=== PATIENT | female | born 1965 | race Caucasian/White ===

== ENCOUNTER 2016-12-18 21:46 | Emergency (ER) | payer OTHER ==
[~2016-12-18] VITALS: Ht 157.4 cm; Wt 88.9 kg
[~2016-12-18 21:46] MED LIST: 'PARAFON FORTE500 M1 PO; ALBUTEROL0.09 MG/A2 INH; AMOXICILLIN500 M2 PO; AMOXICILLIN500 MG PO; ATARAX25 MG PO; ATIVAN1 MG PO; CLEOCIN150 MG PO; CYCLOBENZAPRINE10 MG PO; EC NAPROSYN,NA500 MG PO; FLEXERIL10 MG PO; HYDROCODONE BIT1 T11 PO; HYDROXYZINE HCL25 M1 PO; KEPPRA1000 MG PO; LIDEX 0.05% CRE15 GM T; LORAZEPAM0.5 MG PO; MEDROL DOSEPAK4 MG PO; MOTRIN600 MG PO; MOTRIN800 MG PO; Motrin,Rufen800 MG PO; NAPROSYN500 MG PO; NORCO 5-325 TA1 EACH PO; PAMELOR25 MG PO; PREDNICOT20 MG PO; PREDNISONE50 MG PO; ROBITUSSIN DM PO; TAGAMET HB200 M1 PO; TESSALON PERLE200 MG PO; TRILEPTAL600 MG PO; ZITHROMAX Z PA250 MG PO; ZITHROMAX Z-PA250 MG PO; ZONEGRAN100 MG PO
[2016-12-18] MEDS ORDERED: Motrin,Rufen800 MG PO (22:46)
[2016-12-18] MEDS ORDERED: PROAIR HFA8.5 GM INH (22:46)
[2016-12-18] MEDS ORDERED: ALBUTEROL SULF0.5 M1 INH (22:46)
[2016-12-18] MEDS ORDERED: CEFDINIR300 MG PO (22:46)
== END 2016-12-18 22:59 | disposition home or self-care (01) ==
LOC: ED 21:46
DX: J40 Bronchitis, not specified as acute or chronic (principal); H66.92 Otitis media, unspecified, left ear; F17.210 Nicotine dependence, cigarettes, uncomplicated; F41.9 Anxiety disorder, unspecified; Z88.1 Allergy status to other antibiotic agents; Z88.2 Allergy status to sulfonamides; Z88.8 Allergy status to other drugs, medicaments and biological substances

== ENCOUNTER 2017-01-31 19:18 | Emergency (ER) | payer OTHER ==
[~2017-01-31] VITALS: Ht 157.4 cm; Wt 81.6 kg
[~2017-01-31 19:18] MED LIST changes: +ALBUTEROL SULF0.5 M1 INH; +CEFDINIR300 MG PO; +PROAIR HFA8.5 GM INH
[2017-01-31] MEDS ORDERED: LIDEX 0.05% CRE15 GM T (20:03)
[2017-01-31] MEDS ORDERED: VISTARIL25 M2 PO (20:03)
== END 2017-01-31 20:22 | disposition home or self-care (01) ==
LOC: ED 19:18
DX: R21 Rash and other nonspecific skin eruption (principal); F17.200 Nicotine dependence, unspecified, uncomplicated; Z88.1 Allergy status to other antibiotic agents; Z88.2 Allergy status to sulfonamides; Z88.8 Allergy status to other drugs, medicaments and biological substances; Z79.899 Other long term (current) drug therapy

== ENCOUNTER 2017-10-13 18:33 | Emergency (ER) | payer OTHER ==
[~2017-10-13] VITALS: Wt 90.7 kg
[~2017-10-13 18:33] MED LIST changes: +VISTARIL25 M2 PO
== END 2017-10-13 20:32 | disposition home or self-care (01) ==
LOC: ED 18:33
DX: M54.6 Pain in thoracic spine (principal); F17.200 Nicotine dependence, unspecified, uncomplicated; E66.9 Obesity, unspecified; E78.00 Pure hypercholesterolemia, unspecified; F41.9 Anxiety disorder, unspecified; Z88.2 Allergy status to sulfonamides; Z68.35 Body mass index [BMI] 35.0-35.9, adult; Z88.1 Allergy status to other antibiotic agents

== ENCOUNTER 2017-10-23 15:02 | Emergency (ER) | payer OTHER ==
[~2017-10-23] VITALS: Ht 157.4 cm; Wt 86.2 kg
[2017-10-23 15:47] LABS: BILIRUBIN NEGATIVE (NEGATIVE); BLOOD NEGATIVE (NEGATIVE); CLARITY SL CLOUDY (CLEAR); COLOR YELLOW (YELLOW); GLUCOSE NEGATIVE (NEGATIVE); KETONE NEGATIVE (NEGATIVE); LEUKO ESTERASE 1+ (NEGATIVE); NITRITE NEGATIVE (NEGATIVE); SPECIFIC GRAVITY 1.015 (1.005-1.030); UROBILINOGEN 0.2 E.U./dl (0.2-1.0)
[2017-10-23 15:55] LABS: BACTERIA 2+
[2017-10-23 16:00] LABS: URINE AMPHETAMINES < 1000 (1000ng/ml); URINE BARBITURATES < 200 (200ng/ml); URINE BENZODIAZEPINES < 200 (200ng/ml); URINE CANNABINOIDS (THC) < 50 (50ng/ml); URINE COCAINE < 300 (300ng/ml); URINE METHADONE < 300 (300ng/ml); URINE OPIATES < 300 (300ng/ml); URINE PHENCYCLIDINE < 25 (25ng/ml)
[2017-10-23 16:11] LABS: BASO % 0.7 % (0.0-1.0); EOS # 0.1 10*3/uL (0.0-0.4); EOS % 1.9 % (1.0-4.0); HEMATOCRIT 40.4 % (37.0-47.0); LYMPH # 2.9 10*3/uL (1.3-4.4); MEAN CELL VOLUME 90.4 fl (81.0-99.0); MEAN CORPUSCULAR HGB 31.3 pg (27.0-31.0); MEAN CORPUSCULAR HGB CONC 34.7 g/dl (33.0-37.0); MONO # 0.5 10*3/uL (0.1-1.0); MONO % 8.8 % (3.0-9.0); NEUT # 2.4 10*3/uL (2.3-7.9); NEUT % 40.3 % (47.0-73.0); PLATELET COUNT AUTOMATED 271 10*3/uL (130-400); RED BLOOD COUNT 4.47 10*6/uL (4.10-5.10); RED CELL DISTRI WIDTH 12.6 % (0-14.5); WHITE BLOOD COUNT 5.9 10*3/uL (4.8-10.8)
[2017-10-23 16:19] LABS: ACT PARTIAL THROMBO TIME 23.5 SECONDS (20.8-31.5); INTERNATIONAL NORM RATIO 0.9 (2.0-3.5)
[2017-10-23 16:26] LABS: ALBUMIN 3.7 gm/dl (3.1-4.5); ALKALINE PHOSPHATASE 201 U/L (45-117); BUN 8 mg/dl (7-24); CHLORIDE 106 mmol/L (98-107); CREATININE 0.69 mg/dL (0.55-1.02); LIPASE 91 U/L (73-393); POTASSIUM 3.9 mmol/L (3.5-5.1); SGOT/AST 14 IU/L (3-35); SGPT/ALT 26 U/L (12-78); SODIUM 138 mmol/L (136-145); TOTAL PROTEIN 7.5 gm/dL (6.4-8.2)
[2017-10-23 16:28] LABS: TROPONIN I < 0.015 ng/ml (<0.045)
[2017-10-23] MEDS ORDERED: MACROBID100 M1 PO (16:49)
== END 2017-10-23 16:51 | disposition home or self-care (01) ==
LOC: ED 15:02
PROVIDERS: Nurse Practitioner Family
DX: N39.0 Urinary tract infection, site not specified (principal); E78.00 Pure hypercholesterolemia, unspecified; E66.01 Morbid (severe) obesity due to excess calories; Z88.8 Allergy status to other drugs, medicaments and biological substances; Z88.1 Allergy status to other antibiotic agents; Z68.39 Body mass index [BMI] 39.0-39.9, adult; Z86.718 Personal history of other venous thrombosis and embolism

== ENCOUNTER 2017-10-27 11:48 | Emergency (ER) | payer OTHER ==
[~2017-10-27] VITALS: Ht 157.4 cm; Wt 83.9 kg
[~2017-10-27 11:48] MED LIST changes: +MACROBID100 M1 PO
== END 2017-10-27 12:43 | disposition home or self-care (01) ==
LOC: ED 11:48
DX: Z09 Encounter for follow-up examination after completed treatment for conditions other than malignant neoplasm (principal); F17.200 Nicotine dependence, unspecified, uncomplicated; Z98.51 Tubal ligation status; Z98.890 Other specified postprocedural states; Z79.899 Other long term (current) drug therapy; Z88.8 Allergy status to other drugs, medicaments and biological substances; Z88.1 Allergy status to other antibiotic agents; Z88.6 Allergy status to analgesic agent

== ENCOUNTER 2017-11-12 19:59 | Emergency (ER) | payer OTHER ==
[~2017-11-12] VITALS: Ht 157.4 cm; Wt 90.7 kg
[2017-11-12] MEDS ORDERED: PREDNISONE10 MG PO (21:03)
[2017-11-12] MEDS ORDERED: NAPROSYN500 MG PO (21:03)
== END 2017-11-12 21:09 | disposition home or self-care (01) ==
LOC: ED 19:59
DX: M26.623 Arthralgia of bilateral temporomandibular joint (principal); F17.200 Nicotine dependence, unspecified, uncomplicated; E66.9 Obesity, unspecified; E78.00 Pure hypercholesterolemia, unspecified; G89.29 Other chronic pain; Z98.51 Tubal ligation status; Z98.890 Other specified postprocedural states; Z68.39 Body mass index [BMI] 39.0-39.9, adult; Z79.899 Other long term (current) drug therapy; Z88.8 Allergy status to other drugs, medicaments and biological substances; Z88.6 Allergy status to analgesic agent; Z88.1 Allergy status to other antibiotic agents

== ENCOUNTER 2017-11-17 18:13 | Emergency (ER) | payer OTHER ==
[~2017-11-17] VITALS: Ht 157.4 cm; Wt 90.7 kg
[~2017-11-17 18:13] MED LIST changes: +PREDNISONE10 MG PO
== END 2017-11-17 20:10 | disposition home or self-care (01) ==
LOC: ED 18:13
DX: S80.12XA Contusion of left lower leg, initial encounter (principal); E78.5 Hyperlipidemia, unspecified; E66.9 Obesity, unspecified; Z88.1 Allergy status to other antibiotic agents; Z88.8 Allergy status to other drugs, medicaments and biological substances; Z91.02 Food additives allergy status; Z86.73 Personal history of transient ischemic attack (TIA), and cerebral infarction without residual deficits; Z68.39 Body mass index [BMI] 39.0-39.9, adult; W10.9XXA Fall (on) (from) unspecified stairs and steps, initial encounter; Y93.89 Activity, other specified; Y92.89 Other specified places as the place of occurrence of the external cause; Y99.8 Other external cause status

== ENCOUNTER 2018-01-02 17:21 | Emergency (ER) | payer OTHER ==
[~2018-01-02] VITALS: Ht 167.6 cm; Wt 77.1 kg
== END 2018-01-02 18:38 | disposition left against medical advice (07) ==
LOC: ED 17:21
DX: Z00.8 Encounter for other general examination (principal); Z53.21 Procedure and treatment not carried out due to patient leaving prior to being seen by health care provider

== ENCOUNTER 2018-04-29 12:06 | Emergency (ER) | payer OTHER ==
[~2018-04-29] VITALS: Ht 157.4 cm; Wt 81.6 kg
[2018-04-29] MEDS ORDERED: PREDNISONE10 MG PO (12:46)
[2018-04-29] MEDS ORDERED: FLONASE ALLERG9.9 ML NAS (12:46)
[2018-04-29] MEDS ORDERED: CLARITIN10 MG PO (12:46)
[2018-04-29] MEDS ORDERED: ROBITUSSIN DM 105 ML PO (12:46)
[2018-04-29 12:56] LABS: BASO % 0.6 % (0.0-1.0); EOS # 0.1 10*3/uL (0.0-0.4); EOS % 2.4 % (1.0-4.0); HEMATOCRIT 40.6 % (37.0-47.0); LYMPH # 2.3 10*3/uL (1.3-4.4); LYMPH % 42.4 % (27.0-41.0); MEAN CELL VOLUME 90.4 fl (81.0-99.0); MEAN CORPUSCULAR HGB 31.2 pg (27.0-31.0); MEAN CORPUSCULAR HGB CONC 34.5 g/dl (33.0-37.0); MONO # 0.5 10*3/uL (0.1-1.0); MONO % 9.3 % (3.0-9.0); NEUT # 2.4 10*3/uL (2.3-7.9); NEUT % 44.9 % (47.0-73.0); PLATELET COUNT AUTOMATED 295 10*3/uL (130-400); RED BLOOD COUNT 4.49 10*6/uL (4.10-5.10); RED CELL DISTRI WIDTH 11.9 % (0-14.5); WHITE BLOOD COUNT 5.4 10*3/uL (4.8-10.8)
[2018-04-29 13:10] LABS: ALBUMIN 3.6 gm/dl (3.1-4.5); ALKALINE PHOSPHATASE 164 U/L (45-117); BUN 6 mg/dl (7-24); CHLORIDE 104 mmol/L (98-107); CREATININE 0.56 mg/dL (0.55-1.02); POTASSIUM 4.1 mmol/L (3.5-5.1); SGOT/AST 18 IU/L (3-35); SGPT/ALT 24 U/L (12-78); SODIUM 134 mmol/L (136-145); TOTAL PROTEIN 7.8 gm/dL (6.4-8.2)
== END 2018-04-29 13:30 | disposition home or self-care (01) ==
LOC: ED 12:06
PROVIDERS: Nurse Practitioner Family
DX: J20.9 Acute bronchitis, unspecified (principal); R03.0 Elevated blood-pressure reading, without diagnosis of hypertension; E78.00 Pure hypercholesterolemia, unspecified; F17.200 Nicotine dependence, unspecified, uncomplicated; Z88.1 Allergy status to other antibiotic agents; Z88.8 Allergy status to other drugs, medicaments and biological substances; Z86.718 Personal history of other venous thrombosis and embolism; E66.9 Obesity, unspecified; Z68.39 Body mass index [BMI] 39.0-39.9, adult

== ENCOUNTER 2018-06-11 16:21 | Emergency (ER) | payer OTHER ==
[~2018-06-11] VITALS: Ht 157.4 cm; Wt 86.2 kg
[~2018-06-11 16:21] MED LIST changes: +CLARITIN10 MG PO; +FLONASE ALLERG9.9 ML NAS; +ROBITUSSIN DM 105 ML PO
[2018-06-11] MEDS ORDERED: OMNICEF300 MG PO (16:58)
== END 2018-06-11 17:35 | disposition home or self-care (01) ==
LOC: ED 16:21
DX: H66.91 Otitis media, unspecified, right ear (principal); J02.9 Acute pharyngitis, unspecified; G89.29 Other chronic pain; E78.1 Pure hyperglyceridemia; E66.9 Obesity, unspecified; F17.200 Nicotine dependence, unspecified, uncomplicated; Z88.2 Allergy status to sulfonamides; Z88.8 Allergy status to other drugs, medicaments and biological substances; Z79.899 Other long term (current) drug therapy; Z68.35 Body mass index [BMI] 35.0-35.9, adult

== ENCOUNTER 2018-06-18 19:20 | Emergency (ER) | payer OTHER ==
[~2018-06-18] VITALS: Wt 81.6 kg
[~2018-06-18 19:20] MED LIST changes: +OMNICEF300 MG PO
[2018-06-18] MEDS ORDERED: GOOD NEIGHBOR650 MG PO (20:04)
[2018-06-18] MEDS ORDERED: LEVAQUIN750 M1 PO (20:04)
== END 2018-06-18 20:07 | disposition home or self-care (01) ==
LOC: ED 19:20
DX: H66.91 Otitis media, unspecified, right ear (principal); G89.29 Other chronic pain; E78.2 Mixed hyperlipidemia; E66.9 Obesity, unspecified; F17.200 Nicotine dependence, unspecified, uncomplicated; Z88.8 Allergy status to other drugs, medicaments and biological substances; Z88.2 Allergy status to sulfonamides; Z79.899 Other long term (current) drug therapy; Z68.35 Body mass index [BMI] 35.0-35.9, adult

== ENCOUNTER 2018-08-29 12:11 | Emergency (ER) | payer OTHER ==
[~2018-08-29] VITALS: Ht 157.4 cm; Wt 86.2 kg
[~2018-08-29 12:11] MED LIST changes: +GOOD NEIGHBOR650 MG PO; +LEVAQUIN750 M1 PO
[2018-08-29 13:25] LABS: BASO % 0.4 % (0.0-1.0); EOS # 0.1 10*3/uL (0.0-0.4); HEMATOCRIT 43.5 % (37.0-47.0); HEMOGLOBIN 14.8 g/dl (12.0-16.0); LYMPH # 2.1 10*3/uL (1.3-4.4); LYMPH % 20.9 % (27.0-41.0); MEAN CELL VOLUME 91.8 fl (81.0-99.0); MEAN CORPUSCULAR HGB 31.2 pg (27.0-31.0); MEAN PLATELET VOLUME 8.8 fl (9.6-12.3); MONO # 0.7 10*3/uL (0.1-1.0); NEUT # 7.2 10*3/uL (2.3-7.9); NEUT % 70.3 % (47.0-73.0); PLATELET COUNT AUTOMATED 335 10*3/uL (130-400); RED BLOOD COUNT 4.74 10*6/uL (4.10-5.10); WHITE BLOOD COUNT 10.2 10*3/uL (4.8-10.8)
[2018-08-29 13:44] LABS: ALBUMIN 3.9 gm/dl (3.1-4.5); ALKALINE PHOSPHATASE 198 U/L (45-117); BUN 8 mg/dl (7-24); CHLORIDE 103 mmol/L (98-107); CREATININE 0.65 mg/dL (0.55-1.02); POTASSIUM 3.6 mmol/L (3.5-5.1); SGOT/AST 12 IU/L (3-35); SGPT/ALT 23 U/L (12-78); SODIUM 139 mmol/L (136-145); TOTAL PROTEIN 8.3 gm/dL (6.4-8.2)
[2018-08-29 14:37] LABS: BILIRUBIN NEGATIVE (NEGATIVE); BLOOD NEGATIVE (NEGATIVE); CLARITY CLOUDY (CLEAR); COLOR YELLOW (YELLOW); GLUCOSE NEGATIVE (NEGATIVE); KETONE NEGATIVE (NEGATIVE); LEUKO ESTERASE 2+ (NEGATIVE); NITRITE NEGATIVE (NEGATIVE); SPECIFIC GRAVITY 1.015 (1.005-1.030); UROBILINOGEN 0.2 E.U./dl (0.2-1.0)
[2018-08-29] MEDS ORDERED: PROVENTIL HFA6.7 GM INH (14:48)
[2018-08-29] MEDS ORDERED: TESSALON PERLE100 M1 PO (14:48)
[2018-08-29] MEDS ORDERED: PREDNISONE20 M1 PO (14:48)
[2018-08-29] MEDS ORDERED: AUGMENTIN 875875 MG PO (14:48)
[2018-08-29 15:03] LABS: BACTERIA 2+; WBC 21-30 wbc/hpf (0-5)
== END 2018-08-29 15:15 | disposition home or self-care (01) ==
LOC: ED 12:11
PROVIDERS: Physician Assistant
DX: J02.0 Streptococcal pharyngitis (principal); J40 Bronchitis, not specified as acute or chronic; F17.200 Nicotine dependence, unspecified, uncomplicated; Z88.8 Allergy status to other drugs, medicaments and biological substances; Z88.2 Allergy status to sulfonamides; Z79.2 Long term (current) use of antibiotics; Z79.899 Other long term (current) drug therapy

== ENCOUNTER 2019-01-06 23:43 | Emergency (ER) | payer OTHER ==
[~2019-01-06] VITALS: Ht 157.4 cm; Wt 83.9 kg
--- NOTE | ~2019-01-06 | EKG ---
[place], [place] ELECTROCARDIOGRAM REPORT NAME: JOSEFINA BRICENO UNIT #: [id number] ROOM: DOCTOR: EPIPHANY DRAFT REPORT BIRTHDATE: [birth year] [facility] Test Date: 2019-01-07 Test Time: 00:15:46 Pat Name: JOSEFINA BRICENO Department: ER Room: Gender: F [employer] Operator: Laurie Zendejas : 1965 Requested By: YUSRA WILSON Order Number: [id number] Reading MD: Abimael Arteaga MD Measurements Intervals [place] Rate: 80 P: 46 DC: 194 QRS: 43 QRSD: 83 T: 32 QT: 390 QTc: 450 Interpretive Statements Sinus rhythm Left atrial enlargement Baseline wander in lead(s) V1,V2 Electronically Signed On 01-07-2019 4:17:55 PDT by Abimael Arteaga MD CM:EKGRPT:ELECTROCARDIOGRAM REPORT [id number] YUSRA CASTILLO DRAFT REPORT YUSRA WILSON DO
[~2019-01-06 23:43] MED LIST changes: +AUGMENTIN 875875 MG PO; +PREDNISONE20 M1 PO; +PROVENTIL HFA6.7 GM INH; +TESSALON PERLE100 M1 PO
[2019-01-07 00:50] LABS: BASO % 0.4 % (0.0-1.0); EOS # 0.1 10*3/uL (0.0-0.4); EOS % 1.4 % (1.0-4.0); HEMOGLOBIN 13.8 g/dl (12.0-16.0); LYMPH # 3.4 10*3/uL (1.3-4.4); LYMPH % 47.5 % (27.0-41.0); MEAN CELL VOLUME 93.8 fl (81.0-99.0); MEAN CORPUSCULAR HGB 31.6 pg (27.0-31.0); MEAN CORPUSCULAR HGB CONC 33.7 g/dl (33.0-37.0); MEAN PLATELET VOLUME 9.2 fl (9.6-12.3); MONO # 0.5 10*3/uL (0.1-1.0); MONO % 6.9 % (3.0-9.0); NEUT # 3.1 10*3/uL (2.3-7.9); NEUT % 43.5 % (47.0-73.0); PLATELET COUNT AUTOMATED 294 10*3/uL (130-400); RED BLOOD COUNT 4.37 10*6/uL (4.10-5.10); RED CELL DISTRI WIDTH 12.8 % (0-14.5); WHITE BLOOD COUNT 7.2 10*3/uL (4.8-10.8)
[2019-01-07 01:09] LABS: ACETAMINOPHEN (TYLENOL) < 5.0 ug/ml (10-30); ALBUMIN 3.9 gm/dl (3.1-4.5); ALKALINE PHOSPHATASE 170 U/L (45-117); BUN 13 mg/dl (7-24); CHLORIDE 105 mmol/L (98-107); CREATININE 0.74 mg/dL (0.55-1.02); ETHYL ALCOHOL < 3.0 mg/dl (<3); POTASSIUM 3.3 mmol/L (3.5-5.1); SGOT/AST 14 IU/L (3-35); SGPT/ALT 26 U/L (12-78); SODIUM 139 mmol/L (136-145); TOTAL PROTEIN 7.6 gm/dL (6.4-8.2); TROPONIN I < 0.015 ng/ml (<0.045)
[2019-01-07 01:18] LABS: ACT PARTIAL THROMBO TIME 23.6 SECONDS (20.0-32.1); INTERNATIONAL NORM RATIO 0.9 (2.0-3.5)
== END 2019-01-07 01:37 | disposition home or self-care (01) ==
LOC: ED 23:43
PROVIDERS: Student in an Organized Health Care Education/Training Program
DX: T50.901A Poisoning by unspecified drugs, medicaments and biological substances, accidental (unintentional), initial encounter (principal); R06.02 Shortness of breath; R51 Headache; R25.1 Tremor, unspecified; R10.12 Left upper quadrant pain; G89.29 Other chronic pain; E78.2 Mixed hyperlipidemia; E66.9 Obesity, unspecified; F17.200 Nicotine dependence, unspecified, uncomplicated; Z88.8 Allergy status to other drugs, medicaments and biological substances; Z88.2 Allergy status to sulfonamides; Z79.899 Other long term (current) drug therapy; Z68.35 Body mass index [BMI] 35.0-35.9, adult; Z86.73 Personal history of transient ischemic attack (TIA), and cerebral infarction without residual deficits; Y92.89 Other specified places as the place of occurrence of the external cause

== ENCOUNTER 2019-01-11 11:37 | Emergency (ER) | payer OTHER ==
[~2019-01-11] VITALS: Ht 157.4 cm; Wt 81.6 kg
[2019-01-11] MEDS ORDERED: PREDNISONE10 MG PO (11:59)
[2019-01-11] MEDS ORDERED: FLUOCINONIDE-E15 GM T (11:59)
== END 2019-01-11 12:10 | disposition home or self-care (01) ==
LOC: ED 11:37
DX: L25.9 Unspecified contact dermatitis, unspecified cause (principal); F17.200 Nicotine dependence, unspecified, uncomplicated; Z88.2 Allergy status to sulfonamides; Z91.018 Allergy to other foods

== ENCOUNTER 2019-03-06 00:14 | Emergency (ER) | payer OTHER ==
[~2019-03-06] VITALS: Ht 157.4 cm; Wt 86.2 kg
[~2019-03-06 00:14] MED LIST changes: +FLUOCINONIDE-E15 GM T
[2019-03-06 01:02] LABS: BILIRUBIN NEGATIVE (NEGATIVE); BLOOD TRACE-INTACT (NEGATIVE); CLARITY SL CLOUDY (CLEAR); COLOR YELLOW (YELLOW); GLUCOSE NEGATIVE (NEGATIVE); KETONE NEGATIVE (NEGATIVE); LEUKO ESTERASE 1+ (NEGATIVE); NITRITE NEGATIVE (NEGATIVE); PH 5.5 (5.0-9.0); SPECIFIC GRAVITY >= 1.030 (1.005-1.030); UROBILINOGEN 0.2 E.U./dl (0.2-1.0)
[2019-03-06 01:20] LABS: WBC 31-40 wbc/hpf (0-5)
[2019-03-06] MEDS ORDERED: CIPRO500 MG PO (01:27)
[2019-03-06] MEDS ORDERED: PYRIDIUM200 M1 PO (01:27)
== END 2019-03-06 01:41 | disposition home or self-care (01) ==
LOC: ED 00:14
PROVIDERS: Physician Assistant
DX: N39.0 Urinary tract infection, site not specified (principal); R33.9 Retention of urine, unspecified; F17.200 Nicotine dependence, unspecified, uncomplicated; Z88.8 Allergy status to other drugs, medicaments and biological substances; Z88.2 Allergy status to sulfonamides; Z79.899 Other long term (current) drug therapy

== ENCOUNTER 2019-05-04 12:49 | Emergency (ER) | payer OTHER ==
[~2019-05-04] VITALS: Ht 157.4 cm; Wt 86.2 kg
[~2019-05-04 12:49] MED LIST changes: +CIPRO500 MG PO; +PYRIDIUM200 M1 PO
== END 2019-05-04 14:49 | disposition home or self-care (01) ==
LOC: ED 12:49
DX: S30.0XXA Contusion of lower back and pelvis, initial encounter (principal); Z88.8 Allergy status to other drugs, medicaments and biological substances; Z88.2 Allergy status to sulfonamides; Z79.899 Other long term (current) drug therapy; W10.8XXA Fall (on) (from) other stairs and steps, initial encounter; Y93.89 Activity, other specified; Y92.89 Other specified places as the place of occurrence of the external cause; Y99.8 Other external cause status

== ENCOUNTER 2019-09-11 13:37 | Emergency (ER) | payer OTHER ==
[~2019-09-11] VITALS: Ht 157.4 cm; Wt 81.6 kg
[2019-09-11] MEDS ORDERED: PERCOCET 5-3251 EACH PO (16:37)
== END 2019-09-11 17:01 | disposition home or self-care (01) ==
LOC: ED 13:37
DX: S82.831A Other fracture of upper and lower end of right fibula, initial encounter for closed fracture (principal); S82.391A Other fracture of lower end of right tibia, initial encounter for closed fracture; E78.2 Mixed hyperlipidemia; E66.9 Obesity, unspecified; F17.200 Nicotine dependence, unspecified, uncomplicated; Z88.8 Allergy status to other drugs, medicaments and biological substances; Z88.2 Allergy status to sulfonamides; Z79.899 Other long term (current) drug therapy; Z68.35 Body mass index [BMI] 35.0-35.9, adult; Z86.73 Personal history of transient ischemic attack (TIA), and cerebral infarction without residual deficits; X50.1XXA Overexertion from prolonged static or awkward postures, initial encounter; Y92.89 Other specified places as the place of occurrence of the external cause; Y93.89 Activity, other specified; Y99.8 Other external cause status

== ENCOUNTER 2019-09-14 20:37 | Emergency (ER) | payer OTHER ==
[~2019-09-14] VITALS: Ht 157.4 cm; Wt 81.6 kg
[~2019-09-14 20:37] MED LIST changes: +PERCOCET 5-3251 EACH PO
[2019-09-14] MEDS ORDERED: IBUPROFEN600 MG PO (21:29)
== END 2019-09-14 21:36 | disposition home or self-care (01) ==
LOC: ED 20:37
DX: S82.891D Other fracture of right lower leg, subsequent encounter for closed fracture with routine healing (principal); E78.00 Pure hypercholesterolemia, unspecified; M06.9 Rheumatoid arthritis, unspecified; Z86.73 Personal history of transient ischemic attack (TIA), and cerebral infarction without residual deficits; Z79.899 Other long term (current) drug therapy; W01.0XXD Fall on same level from slipping, tripping and stumbling without subsequent striking against object, subsequent encounter

== ENCOUNTER 2019-09-22 19:48 | Emergency (ER) | payer OTHER ==
[~2019-09-22] VITALS: Wt 77.1 kg
[~2019-09-22 19:48] MED LIST changes: +IBUPROFEN600 MG PO
== END 2019-09-22 23:02 | disposition home or self-care (01) ==
LOC: ED 19:48
DX: S82.64XA Nondisplaced fracture of lateral malleolus of right fibula, initial encounter for closed fracture (principal); E78.2 Mixed hyperlipidemia; E66.9 Obesity, unspecified; F17.200 Nicotine dependence, unspecified, uncomplicated; Z88.8 Allergy status to other drugs, medicaments and biological substances; Z88.2 Allergy status to sulfonamides; Z79.899 Other long term (current) drug therapy; Z68.35 Body mass index [BMI] 35.0-35.9, adult; Z86.73 Personal history of transient ischemic attack (TIA), and cerebral infarction without residual deficits; X58.XXXA Exposure to other specified factors, initial encounter; Y93.89 Activity, other specified; Y92.89 Other specified places as the place of occurrence of the external cause; Y99.8 Other external cause status

== ENCOUNTER 2019-09-28 19:45 | Emergency (ER) | payer OTHER ==
[~2019-09-28] VITALS: Ht 157.4 cm; Wt 81.6 kg
== END 2019-09-28 21:16 | disposition home or self-care (01) ==
LOC: ED 19:45
DX: R56.9 Unspecified convulsions (principal); Z76.0 Encounter for issue of repeat prescription; F17.200 Nicotine dependence, unspecified, uncomplicated; Z88.8 Allergy status to other drugs, medicaments and biological substances; Z88.2 Allergy status to sulfonamides; Z79.899 Other long term (current) drug therapy; Z86.73 Personal history of transient ischemic attack (TIA), and cerebral infarction without residual deficits

== ENCOUNTER 2019-10-15 22:27 | Emergency (ER) | payer OTHER ==
[~2019-10-15] VITALS: Ht 157.4 cm; Wt 81.6 kg
[2019-10-16] MEDS ORDERED: IBU600 M1 PO (00:51)
== END 2019-10-16 01:07 | disposition home or self-care (01) ==
LOC: ED 22:27
DX: M25.511 Pain in right shoulder (principal); F17.200 Nicotine dependence, unspecified, uncomplicated; Z79.899 Other long term (current) drug therapy; Z88.2 Allergy status to sulfonamides; W18.39XA Other fall on same level, initial encounter; Y93.89 Activity, other specified; Y92.89 Other specified places as the place of occurrence of the external cause; Y99.8 Other external cause status

== ENCOUNTER 2020-02-07 20:41 | Emergency (ER) | payer OTHER ==
[~2020-02-07] VITALS: Ht 157.4 cm; Wt 88.5 kg
[~2020-02-07 20:41] MED LIST changes: +IBU600 M1 PO
[2020-02-07 22:21] LABS: ACT PARTIAL THROMBO TIME 23.7 SECONDS (20.0-32.1); INTERNATIONAL NORM RATIO 0.9 (2.0-3.5)
[2020-02-07 22:24] LABS: ALBUMIN 3.6 gm/dl (3.1-4.5); ALKALINE PHOSPHATASE 160 U/L (45-117); BUN 9 mg/dl (7-24); CHLORIDE 105 mmol/L (98-107); POTASSIUM 3.8 mmol/L (3.5-5.1); SGOT/AST 19 IU/L (3-35); SGPT/ALT 31 U/L (12-78); SODIUM 134 mmol/L (136-145); TOTAL PROTEIN 7.6 gm/dL (6.4-8.2)
[2020-02-07 22:59] LABS: BASO % 0.5 % (0.0-1.0); EOS # 0.1 10*3/uL (0.0-0.4); EOS % 1.3 % (1.0-4.0); HEMATOCRIT 39.6 % (37.0-47.0); LYMPH # 3.5 10*3/uL (1.3-4.4); LYMPH % 46.2 % (27.0-41.0); MEAN CELL VOLUME 95.4 fl (81.0-99.0); MEAN CORPUSCULAR HGB 31.6 pg (27.0-31.0); MEAN CORPUSCULAR HGB CONC 33.1 g/dl (33.0-37.0); MEAN PLATELET VOLUME 9.3 fl (9.6-12.3); MONO # 0.7 10*3/uL (0.1-1.0); MONO % 9.3 % (3.0-9.0); NEUT # 3.2 10*3/uL (2.3-7.9); NEUT % 42.3 % (47.0-73.0); PLATELET COUNT AUTOMATED 231 10*3/uL (130-400); RED BLOOD COUNT 4.15 10*6/uL (4.10-5.10); RED CELL DISTRI WIDTH 12.3 % (0-14.5); WHITE BLOOD COUNT 7.5 10*3/uL (4.8-10.8)
[2020-02-08] MEDS ORDERED: PERCOCET 5-3251 EACH PO (00:36)
== END 2020-02-08 01:15 | disposition home or self-care (01) ==
LOC: ED 20:41
PROVIDERS: Physician Assistant
DX: S22.41XA Multiple fractures of ribs, right side, initial encounter for closed fracture (principal); Z88.2 Allergy status to sulfonamides; Z88.8 Allergy status to other drugs, medicaments and biological substances; Z79.899 Other long term (current) drug therapy; V89.2XXA Person injured in unspecified motor-vehicle accident, traffic, initial encounter; Y93.89 Activity, other specified; Y92.89 Other specified places as the place of occurrence of the external cause; Y99.8 Other external cause status

== ENCOUNTER 2020-02-22 17:37 | Emergency (ER) | payer OTHER ==
[~2020-02-22] VITALS: Ht 157.4 cm; Wt 93.0 kg
[2020-02-22] MEDS ORDERED: Motrin,Rufen800 MG PO (19:30)
== END 2020-02-22 19:37 | disposition home or self-care (01) ==
LOC: ED 17:37
DX: S40.022A Contusion of left upper arm, initial encounter (principal); M19.90 Unspecified osteoarthritis, unspecified site; F17.200 Nicotine dependence, unspecified, uncomplicated; Z86.718 Personal history of other venous thrombosis and embolism; Z88.8 Allergy status to other drugs, medicaments and biological substances; Z88.2 Allergy status to sulfonamides; Z79.899 Other long term (current) drug therapy; X58.XXXA Exposure to other specified factors, initial encounter; Y93.89 Activity, other specified; Y92.89 Other specified places as the place of occurrence of the external cause; Y99.8 Other external cause status

== ENCOUNTER 2020-05-25 15:22 | Emergency (ER) | payer OTHER | END 2020-05-25 15:35 | disposition left against medical advice (07) | LOC: ED 15:22 | DX: Z20.828 Contact with and (suspected) exposure to other viral communicable diseases (principal) ==

== ENCOUNTER 2020-08-07 21:17 | Emergency (ER) | payer OTHER ==
[~2020-08-07] VITALS: Ht 157.4 cm; Wt 90.7 kg
== END 2020-08-07 23:45 | disposition home or self-care (01) ==
LOC: ED 21:17
DX: T18.128A Food in esophagus causing other injury, initial encounter (principal); E78.00 Pure hypercholesterolemia, unspecified; E66.9 Obesity, unspecified; Z88.8 Allergy status to other drugs, medicaments and biological substances; Z88.2 Allergy status to sulfonamides; Z86.73 Personal history of transient ischemic attack (TIA), and cerebral infarction without residual deficits; Z68.39 Body mass index [BMI] 39.0-39.9, adult; Z87.891 Personal history of nicotine dependence; Y92.89 Other specified places as the place of occurrence of the external cause

== ENCOUNTER 2020-12-10 17:42 | Emergency (ER) | payer OTHER ==
[~2020-12-10] VITALS: Ht 157.4 cm; Wt 87.1 kg
== END 2020-12-11 05:54 | disposition home or self-care (01) ==
LOC: ED 17:42
DX: S93.691A Other sprain of right foot, initial encounter (principal); F17.200 Nicotine dependence, unspecified, uncomplicated; Z98.51 Tubal ligation status; Z98.890 Other specified postprocedural states; Z88.8 Allergy status to other drugs, medicaments and biological substances; Z88.1 Allergy status to other antibiotic agents; X50.1XXA Overexertion from prolonged static or awkward postures, initial encounter; Y93.89 Activity, other specified; Y92.89 Other specified places as the place of occurrence of the external cause; Y99.9 Unspecified external cause status

== ENCOUNTER 2021-02-13 11:11 | Emergency (ER) | payer OTHER ==
[~2021-02-13] VITALS: Ht 157.4 cm; Wt 90.7 kg
[2021-02-13 11:45] LABS: BASO % 0.7 % (0.0-1.0); EOS # 0.1 10*3/uL (0.0-0.4); HEMATOCRIT 42.9 % (37.0-47.0); LYMPH % 50.4 % (27.0-41.0); MEAN CELL VOLUME 93.1 fl (81.0-99.0); MEAN CORPUSCULAR HGB 31.2 pg (27.0-31.0); MEAN CORPUSCULAR HGB CONC 33.6 g/dl (33.0-37.0); MEAN PLATELET VOLUME 8.9 fl (9.6-12.3); MONO # 0.5 10*3/uL (0.1-1.0); MONO % 7.8 % (3.0-9.0); NEUT # 2.3 10*3/uL (2.3-7.9); NEUT % 38.8 % (47.0-73.0); PLATELET COUNT AUTOMATED 272 10*3/uL (130-400); RED BLOOD COUNT 4.61 10*6/uL (4.10-5.10); RED CELL DISTRI WIDTH 12.1 % (0-14.5); WHITE BLOOD COUNT 5.9 10*3/uL (4.8-10.8)
[2021-02-13 12:00] LABS: ALBUMIN 3.7 gm/dl (3.1-4.5); ALKALINE PHOSPHATASE 187 U/L (45-117); BUN 7 mg/dl (7-24); CHLORIDE 111 mmol/L (98-107); CREATININE 0.65 mg/dL (0.55-1.02); POTASSIUM 4.1 mmol/L (3.5-5.1); SGOT/AST 14 IU/L (3-35); SGPT/ALT 25 U/L (12-78); SODIUM 140 mmol/L (136-145); TOTAL PROTEIN 7.9 gm/dL (6.4-8.2)
[2021-02-13] MEDS ORDERED: ZITHROMAX250 MG PO (12:49)
== END 2021-02-13 12:55 | disposition home or self-care (01) ==
LOC: ED 11:11
PROVIDERS: Nurse Practitioner
DX: J40 Bronchitis, not specified as acute or chronic (principal); Z20.822 Contact with and (suspected) exposure to COVID-19; F17.210 Nicotine dependence, cigarettes, uncomplicated; Z98.51 Tubal ligation status; Z98.890 Other specified postprocedural states; Z86.73 Personal history of transient ischemic attack (TIA), and cerebral infarction without residual deficits; Z88.1 Allergy status to other antibiotic agents; Z88.8 Allergy status to other drugs, medicaments and biological substances

== ENCOUNTER 2021-02-16 04:48 | Inpatient (IN) | payer OTHER ==
[~2021-02-16] VITALS: Ht 157.5 cm; Wt 92.6 kg
[~2021-02-16 04:48] MED LIST changes: +ZITHROMAX250 MG PO
[2021-02-16 05:12] VITALS: BP 116/47
[2021-02-16 06:24] LABS: BASO % 0.4 % (0.0-1.0); EOS # 0.1 10*3/uL (0.0-0.4); EOS % 1.6 % (1.0-4.0); HEMATOCRIT 38.7 % (37.0-47.0); LYMPH # 3.1 10*3/uL (1.3-4.4); LYMPH % 39.8 % (27.0-41.0); MEAN CELL VOLUME 93.7 fl (81.0-99.0); MEAN CORPUSCULAR HGB 31.7 pg (27.0-31.0); MEAN CORPUSCULAR HGB CONC 33.9 g/dl (33.0-37.0); MONO # 0.7 10*3/uL (0.1-1.0); MONO % 8.8 % (3.0-9.0); NEUT # 3.9 10*3/uL (2.3-7.9); PLATELET COUNT AUTOMATED 254 10*3/uL (130-400); RED BLOOD COUNT 4.13 10*6/uL (4.10-5.10); WHITE BLOOD COUNT 7.9 10*3/uL (4.8-10.8)
[2021-02-16 06:32] LABS: BUN 10 mg/dl (7-24); CHLORIDE 104 mmol/L (98-107); CREATININE 0.52 mg/dL (0.55-1.02); POTASSIUM 3.5 mmol/L (3.5-5.1); SODIUM 136 mmol/L (136-145)
[2021-02-16 07:30] VITALS: BP 134/77
[2021-02-16] MEDS ORDERED: AUGMENTIN 875875 MG PO ×2 (07:39)
[2021-02-16 10:25] VITALS: BP 130/72
[2021-02-16 16:00] VITALS: BP 122/64
[2021-02-16 20:00] VITALS: BP 132/78
[2021-02-17] VITALS: BP 142/69
[2021-02-17 06:29] LABS: HEMATOCRIT 42.2 % (37.0-47.0); MEAN CELL VOLUME 93.6 fl (81.0-99.0); MEAN CORPUSCULAR HGB 31.3 pg (27.0-31.0); MEAN CORPUSCULAR HGB CONC 33.4 g/dl (33.0-37.0); MEAN PLATELET VOLUME 9.1 fl (9.6-12.3); PLATELET COUNT AUTOMATED 321 10*3/uL (130-400); RED BLOOD COUNT 4.51 10*6/uL (4.10-5.10); WHITE BLOOD COUNT 7.9 10*3/uL (4.8-10.8)
[2021-02-17 06:47] LABS: ALBUMIN 3.6 gm/dl (3.1-4.5); ALKALINE PHOSPHATASE 193 U/L (45-117); BUN 10 mg/dl (7-24); CHLORIDE 107 mmol/L (98-107); CREATININE 0.67 mg/dL (0.55-1.02); FREE T4 0.75 ng/dl (0.76-1.46); POTASSIUM 3.7 mmol/L (3.5-5.1); SGOT/AST 12 IU/L (3-35); SGPT/ALT 25 U/L (12-78); SODIUM 136 mmol/L (136-145); TOTAL PROTEIN 7.9 gm/dL (6.4-8.2)
[2021-02-17 07:09] LABS: PLATELET SUFFICIENCY NORMAL (NORMAL); TOTAL CELLS COUNTED 100 #CELLS
[2021-02-17 08:00] VITALS: BP 128/70
[2021-02-17] MEDS ORDERED: BACITRACIN28.4 GM T (11:35)
[2021-02-17] MEDS ORDERED: AUGMENTIN 875875 MG PO (11:35)
[2021-02-17] MEDS ORDERED: IBU800 M2 PO (11:48)
== END 2021-02-17 12:20 | disposition home or self-care (01) | DRG 605 ==
LOC: ED 04:48 → 5E 08:21 → EDHOLD 08:21 → 5E 09:12
PROVIDERS: Emergency Medicine; Internal Medicine; ADMIT Internal Medicine; ATTEND Internal Medicine
PROC: 0X9K0ZZ Drainage of Left Hand, Open Approach (ICD-10-PCS; principal; 2021-02-17)
DX: S61.251A Open bite of left index finger without damage to nail, initial encounter (principal); L02.512 Cutaneous abscess of left hand; W55.01XA Bitten by cat, initial encounter; Z71.6 Tobacco abuse counseling; R79.82 Elevated C-reactive protein (CRP); F41.9 Anxiety disorder, unspecified; M54.5 Low back pain; G89.29 Other chronic pain; G40.909 Epilepsy, unspecified, not intractable, without status epilepticus; E66.9 Obesity, unspecified; I89.1 Lymphangitis; E78.00 Pure hypercholesterolemia, unspecified; E78.1 Pure hyperglyceridemia; F17.210 Nicotine dependence, cigarettes, uncomplicated; Y93.89 Activity, other specified; Y92.89 Other specified places as the place of occurrence of the external cause; Y99.8 Other external cause status; Z88.8 Allergy status to other drugs, medicaments and biological substances; Z88.2 Allergy status to sulfonamides; Z86.73 Personal history of transient ischemic attack (TIA), and cerebral infarction without residual deficits; Z87.440 Personal history of urinary (tract) infections; Z98.51 Tubal ligation status; Z83.3 Family history of diabetes mellitus; Z80.8 Family history of malignant neoplasm of other organs or systems; Z68.37 Body mass index [BMI] 37.0-37.9, adult

== ENCOUNTER → 2021-05-03 | Outpatient (CLI) | payer OTHER ==
[~2021-05-03] MED LIST changes: +BACITRACIN28.4 GM T; +IBU800 M2 PO
== END | disposition home or self-care (01) ==
LOC: COVID19 18:26
PROVIDERS: ATTEND Internal Medicine
DX: U07.1 COVID-19 (principal)

== ENCOUNTER 2021-05-08 18:45 | Emergency (ER) | payer OTHER ==
[~2021-05-08] VITALS: Ht 167.6 cm; Wt 95.3 kg
[2021-05-08 21:04] LABS: HEMATOCRIT 41.9 % (37.0-47.0); MEAN CELL VOLUME 91.5 fl (81.0-99.0); MEAN CORPUSCULAR HGB CONC 33.9 g/dl (33.0-37.0); MEAN PLATELET VOLUME 9.5 fl (9.6-12.3); PLATELET COUNT AUTOMATED 171 10*3/uL (130-400); RED BLOOD COUNT 4.58 10*6/uL (4.10-5.10); RED CELL DISTRI WIDTH 12.2 % (0-14.5); WHITE BLOOD COUNT 2.7 10*3/uL (4.8-10.8)
[2021-05-08 21:21] LABS: ALBUMIN 3.6 gm/dl (3.1-4.5); ALKALINE PHOSPHATASE 164 U/L (45-117); BUN 9 mg/dl (7-24); CHLORIDE 105 mmol/L (98-107); CREATININE 0.71 mg/dL (0.55-1.02); POTASSIUM 3.2 mmol/L (3.5-5.1); SGOT/AST 35 IU/L (3-35); SGPT/ALT 34 U/L (12-78); SODIUM 136 mmol/L (136-145); TOTAL PROTEIN 7.5 gm/dL (6.4-8.2)
[2021-05-08 21:30] LABS: ATYPICAL LYMPHS 3 % (0-0); BASOPHILS 1 % (0-1); PLATELET SUFFICIENCY NORMAL (NORMAL); TOTAL CELLS COUNTED 100 #CELLS
== END 2021-05-09 03:08 | disposition home or self-care (01) ==
LOC: ED 18:45
PROVIDERS: Emergency Medicine
DX: U07.1 COVID-19 (principal); F17.210 Nicotine dependence, cigarettes, uncomplicated; Z88.8 Allergy status to other drugs, medicaments and biological substances; Z88.2 Allergy status to sulfonamides; Z79.2 Long term (current) use of antibiotics; Z79.899 Other long term (current) drug therapy; F41.9 Anxiety disorder, unspecified; E78.2 Mixed hyperlipidemia; E66.9 Obesity, unspecified; Z68.35 Body mass index [BMI] 35.0-35.9, adult; Z86.73 Personal history of transient ischemic attack (TIA), and cerebral infarction without residual deficits; Z98.51 Tubal ligation status

== ENCOUNTER 2021-05-19 19:16 | Emergency (ER) | payer OTHER ==
[~2021-05-19] VITALS: Ht 170.1 cm; Wt 81.6 kg
== END 2021-05-19 22:00 | disposition left against medical advice (07) ==
LOC: ED 19:16
DX: R10.9 Unspecified abdominal pain (principal); Z53.21 Procedure and treatment not carried out due to patient leaving prior to being seen by health care provider